=== PATIENT | female | born 1960 | race Caucasian/White ===

== ENCOUNTER → 2021-02-05 | Outpatient (CLI) | payer OTHER ==
[~2021-02-05] MED LIST: ESOM20CA PO; ONDA4TAB7 PO; OXYC-325 PO; OXYC20TA34 PO; OXYC5CAP PO; TIZA-75 PO
== END ==
LOC: LAB 14:17
PROVIDERS: ATTEND Surgery
DX: Z01.812 Encounter for preprocedural laboratory examination (principal); Z20.822 Contact with and (suspected) exposure to COVID-19; K81.9 Cholecystitis, unspecified
CPT/HCPCS: U0003; U0005

== ENCOUNTER 2021-02-09 06:08 | Day surgery (SDC) | payer OTHER ==
[~2021-02-09] VITALS: Ht 170.2 cm; Wt 63.5 kg
[~2021-02-09 06:08] MED LIST changes: +IV RINGERS,LACTATED 1000ML 1,000 ML IV SCH; -ONDA4TAB7 PO; -OXYC-325 PO; -OXYC5CAP PO; +PROCHLORPERAZINE 10 MG/2 ML VIAL. IVP PRN; +ceFAZolin SODIUM IV Push 1 GM VIAL. IVP PRN; +fentaNYL PF VIAL 100 MCG/2 ML VIAL IVP PRN
[2021-02-09 06:53] VITALS: BP 109/55
[2021-02-09] MEDS ORDERED: OXYC5CAP PO (06:57)
[2021-02-09] MEDS ORDERED: ONDA4TAB7 PO (06:57)
[2021-02-09] MEDS ORDERED: ONDANSETRON PF 4 MG/2 ML VIAL. ONE (07:00)
[2021-02-09] MEDS ORDERED: PROPOFOL 10 MG/ML (20ML) VIAL. IV ONE (07:00)
[2021-02-09] MEDS ORDERED: LIDOCAINE 2% PF 5 ML VIAL. ONE (07:00)
[2021-02-09] MEDS ORDERED: DEXAMETHASONE SOD PHOS 4 MG/ML VIAL ONE (07:00)
[2021-02-09] MEDS ORDERED: SUCCINYLCHOLINE 200 MG/10 ML VIAL. ONE (07:01)
[2021-02-09] MEDS ORDERED: ROCURONIUM 50 MG/5 ML VIAL. ONE (07:01)
[2021-02-09] MEDS ORDERED: fentaNYL PF VIAL 100 MCG/2 ML VIAL ONE ×2 (07:01→09:23)
[2021-02-09] MEDS ORDERED: IOHEXOL 300 MG/ML 50 ML VIAL. ONE ×2 (07:06→08:24)
[2021-02-09] MEDS ORDERED: BUPIVACAINE MPF 0.5% 30 ML VIAL. ONE (07:06)
[2021-02-09] MEDS ORDERED: SURGICEL HEMOSTAT 4X8 EACH. ONE (07:07)
[2021-02-09] MEDS ORDERED: KETAMINE HCL IN NACL, ISO-OSM 50 MG/5 ML SYRINGE ONE (07:09)
[2021-02-09] MEDS ORDERED: NEOSTIGMINE METHYLSULFATE 5 MG/5 ML SYRINGE. ONE (07:36)
[2021-02-09] MEDS ORDERED: GLYCOPYRROLATE 1 MG/5 ML VIAL. ONE (08:06)
[2021-02-09] MEDS ORDERED: SURGICEL HEMOSTAT 4X8 EACH. TP ONE (08:46)
--- NOTE | 2021-02-09 08:46 | RAD ---
EXAM: Intraoperative cholangiogram HISTORY: Cholangiogram. Cholecystectomy. COMPARISON: None. FINDINGS: 6 fluoroscopic images were obtained during an intraoperative cholangiogram. The total fluor oscopy time is 129.4 seconds. The images demonstrate contrast opacification of the biliary tree and p roximal small bowel. No retained stone is seen. IMPRESSION: Intraoperative cholangiogram without evidence of a retained stone. Electronically signed by: Claire Candelaria MD (02/09/2021 8:43 AM) [id number]
--- NOTE | 2021-02-09 09:03 | PDOC4 ---
Operative Note Operative Note Operative Note: Preoperative Diagnosis: Chronic cholecystitis Postoperative Diagnosis: Same Procedure: Laparoscopic cholecystectomy with intraoperative cholangiogram Surgeons: Julian Cullet Crusher: Chase MARIANO Anesthesia: Gen. Estimated Blood Loss: 10 mL Specimen: Gallbladder to pathology Drains: None Complications: None Indications: The patient is a 60-year-old female who is referred with findings consistent with chronic cholecystitis. Surgical treatment was offered by means of a laparoscopic cholecystectomy. The risks of surgery were discussed which include bleeding, infection, bile duct injury, bile leak, pain, the potential for additional surgeries or procedures. The patient understands and would like to proceed. Description: The patient was taken to the operating room and laid supine on the operating table. General anesthesia was performed. The abdomen was prepped with ChloraPrep and draped in a standard surgical fashion. A right upper quadrant incision was made through which a visualized 5 mm trocar was inserted. A pneumoperitoneum was created and the laparoscope introduced. There is no evidence of intra-abdominal injury. Also there were no significant adhesions. Another 5 mm trocar was placed inferior to the umbilicus. The camera port was moved to that location. In the upper midabdomen a 5 mm trocar was inserted and in the right upper quadrant a 2.3 mm mini lap grasper was inserted. The gallbladder was retracted cephalad. The cystic duct was dissected free from surrounding tissues, and the cystic duct gallbladder junction was clearly identified. One clip was placed on the duct near the gallbladder junction. An opening was made in the duct and a cholangiocatheter placed within and secured with a clip. Using contrast dye and fluoroscopy an intraoperative cholangiogram was performed. There was no sign of filling defects or stones. Contrast appeared to pass preferentially distal and visualization of the proximal hepatic duct was more difficult. Only small radicles could be visualized after multiple attempts. The clip and catheter were then withdrawn. Three clips were placed on the cystic duct and it was divided. The cystic artery was then identified, dissected free, doubly clipped and divided as well. The gallbladder was then mobilized away from the liver with cautery. The infraumbilical 5 millimeter trocar was exchanged for an 11 millimeter trocar. The gallbladder was then placed in an endoscopic bag and extracted at the infraumbilical trocar site. The fascia there was closed with an 0 Vicryl suture and infiltrated with 0.5% marcaine. All blood and irrigation fluid was suctioned and hemostasis was good. The remaining ports were removed and the pneumoperitoneum was relieved. The skin incisions were closed using 4-0 Monocryl suture. Steri-Strips and dressings were then applied. The patient tolerated the procedure well and was sent to the recovery room in stable condition. At the end of the case all counts were correct. VINCENT SEGURA MD Feb 09, 2021 09:03
[2021-02-09] MEDS ORDERED: OXYC-325 PO (09:05)
--- NOTE | 2021-02-09 09:06 | DISCH ---
DISCHARGE INSTRUCTIONS Condition on Discharge Condition on Discharge: Stable Activity After Discharge Activity Instructions for Disc: Other, see below (no lifting over 20 lbs X 2 weeks) Diet after Discharge Diet after Discharge: Regular Wound Incision Care Wound/Incision Care: Other, see below (May remove bandaids tomorrow and shower) Follow-Up Follow up with: Dr Segura in 2 weeks in office, call for appointment, VINCENT SEGURA MD Feb 09, 2021 09:06
[2021-02-09] MEDS ORDERED: MORPHINE SULFATE 2 MG/ML INJ. ONE (09:23)
[2021-02-09] MEDS: MORPHINE SULFATE 2 MG/ML INJ. IVP PRN ×2 (09:28→09:38)
[2021-02-09] MEDS: fentaNYL PF VIAL 100 MCG/2 ML VIAL IVP PRN ×2 (09:28→09:35)
[2021-02-09] MEDS ORDERED: oxyCODONE/APAP 5/325 1 TAB TABLET PO ONE (09:30)
[2021-02-09] MEDS ORDERED: HYDROmorphone 2 MG/ML VIAL ONE (09:40)
[2021-02-09] MEDS: HYDROmorphone 2 MG/ML VIAL IVP PRN ×4 (09:44→10:21)
[2021-02-09] MEDS ORDERED: KETOROLAC 30 MG/ML VIAL. IVP ONE (10:15)
[2021-02-09 10:50] VITALS: BP 116/64
--- NOTE | 2021-02-10 15:33 | PATHOLOGY ---
[facility] [place] Accession Number: [id number] . 01 Material submitted: . gallbladder - GALLBLADDER . 01 Clinical history: . CHOLECYSTITIS LAPAROSCOPIC CHOLECYSTECTOMY WITH CHOLANGIOGRAM . 02 Diagnosis: Gallbladder, laparoscopic cholecystectomy: - Cholelithiasis. - Chronic cholecystitis. - Reactive changes of gallbladder neck lymph node. (JP:attila; 02/10/2021) R 02/10/2021 1230 Local . 02 Comment: There is no evidence of malignancy. (JPM:junior account manager; 02/10/2021) . 02 Electronically signed: . Adrien Jaffe MD, Pathologist NPI- [id number] . 01 Gross description: . Fixative: Formalin Labeled: Gallbladder Specimen received: Intact gallbladder Dimensions: 7.8 x 3.3 x 1.0 cm Serosa: Light castro-catherine Lymph node: Single possible lymph node found near cystic duct measuring 0.9 x 0.7 x 0.3 cm Mucosa: Velvety and bile-stained Average wall thickness: 0.2 cm Calculi: Present, black and friable Abnormalities: Possible lymph node . 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 A2-possible lymph node, bisected ([facility]; 02/09/2021) [facility] 02/09/2021 1711 Local . 02 Pathologist provided ICD-10: K80.10 . 02 CPT . 177238 Specimen Comment: A courtesy copy of this report has been sent to [phone] Specimen Comment: Report sent to Performed at: [address], [place], [place] [id number] MD Scott Quijano MD Phone: [phone] Performed at: 02 [facility] [address] [place], [place] [id number] MD Adrien Jaffe MD Phone: [phone]
== END 2021-02-09 11:15 | disposition home or self-care (01) ==
LOC: SURG 06:08
PROVIDERS: ATTEND Surgery
DX: K80.10 Calculus of gallbladder with chronic cholecystitis without obstruction (principal); K21.9 Gastro-esophageal reflux disease without esophagitis; Z90.710 Acquired absence of both cervix and uterus; Z98.890 Other specified postprocedural states; Z79.899 Other long term (current) drug therapy; Z72.89 Other problems related to lifestyle
CPT/HCPCS: 47563; 74300; 88304; A4213; A4364; A4930; A6219; C1887; J0330; J0690; J1100; J1170; J1885; J2270; J2405; J2704; J2710; J3010; J3490; Q9967; A4452; A4657